=== PATIENT | female | born 1950 | race African-American/Black ===

== ENCOUNTER 2016-09-14 06:00 | Day surgery (SDC) | payer MEDICARE ==
[~2016-09-14] VITALS: Ht 160 cm; Wt 54.8 kg
[~2016-09-14 06:00] MED LIST: AMLO5TAB2 PO; ASPI1TAB69 PO; FISHCAP4 PO; Glucometer SQ; METF500T PO; PERI8.6T PO; ROSU40 PO; SERT-129 PO; ST J81CH PO; [UNRECOGNIZED DRUG - OTHER] SQ; lancets SQ; test strips SQ
[2016-09-14] MEDS ORDERED: SODIUM BICARBONATE 100 MEQ in D5W 1000 ML IV SCH (06:30)
[2016-09-14 07:09] VITALS: BP 156/76; PULSE 76; RESP 18; TEMP 98; O2SAT 99
[2016-09-14] MEDS ORDERED: GABA400C5 PO (07:16)
[2016-09-14] MEDS ORDERED: METF500T PO (07:16)
[2016-09-14] MEDS ORDERED: SERT-129 PO (07:16)
[2016-09-14 08:08] LABS: AUTOMATED NEUTROPHIL # 3.5 TH/MM3 (1.8-7.7); BASOPHIL # 0.1 TH/MM3 (0-0.2); BASOPHIL % 1.2 % (0.0-2.0); EOSINOPHIL # 0.3 TH/MM3 (0-0.4); EOSINOPHIL % 4.8 % (0.0-4.0); HEMATOCRIT 34.3 % (35.0-46.0); HEMO FLAGS DIFF FINAL; LYMPH % 27.3 % (9.0-44.0); LYMPHOCYTE # 1.6 TH/MM3 (1.0-4.8); MEAN CELL VOLUME 88.2 FL (80.0-100.0); MEAN CORPUSCULAR HEMOGLOBIN 29.3 PG (27.0-34.0); MEAN CORPUSCULAR HGB CONC 33.2 % (32.0-36.0); NEUT % 58.7 % (16.0-70.0); PLATELET COUNT 302 TH/MM3 (150-450); RED BLOOD COUNT 3.88 MIL/MM3 (4.00-5.30); RED CELL DISTRIBUTION WIDTH 15.6 % (11.6-17.2)
[2016-09-14 08:14] LABS: PROTHROMBIN TIME - PATIENT 11.1 SEC (9.8-11.6)
[2016-09-14] MEDS ORDERED: MIDAZOLAM HCL 5 MG/5 ML VIAL ONE (08:18)
[2016-09-14] MEDS ORDERED: HEPARIN-NS/PF INJ 500 ML ONE (08:18)
[2016-09-14] MEDS ORDERED: HEPARIN SODIUM - IV 10,000 UNITS/10 ML VIAL ONE (08:19)
[2016-09-14] MEDS ORDERED: NITROGLYCERIN INJ 5 ML ONE (08:19)
[2016-09-14] MEDS ORDERED: diphenhydrAMINE HCL 50 MG/ML VIAL ONE (08:47)
[2016-09-14] MEDS ORDERED: methylPREDNISolone SOD SUCC 125 MG/2 ML VIAL ONE (08:49)
[2016-09-14] MEDS ORDERED: FAMOTIDINE 20 MG/2 ML VIAL ONE (08:49)
[2016-09-14] MEDS ORDERED: NALOXONE HCL 0.4 MG/ML AMP ONE (08:57)
[2016-09-14] MEDS ORDERED: PROMETHAZINE HCL SYRUP 6.25 MG/5 ML CUP PO ONE (09:45)
--- NOTE | 2016-09-14 10:56 | MA ---
cc: ROBBIN ALVAREZ DATE 09/14/2016 PREOPERATIVE DIAGNOSIS Intermittent rest pain and short distance claudication, lifestyle-limiting SURGEON Robbin Alvarez DO PROCEDURE Access right common femoral artery used duplex ultrasound IV FLUIDS Approximately 500 cc ESTIMATED BLOOD LOSS Not calculated. PROCEDURE This patient is a pleasant 65-year-old female with a history of smoking and lifestyle limiting claudication. She was started on Pletal and was to undergo an angiogram for what I suspect to be multilevel disease. She did have a history of a codeine allergy with a rash. We did give her fentanyl which is in a different class before getting access to the right common femoral artery with duplex ultrasound. It should be noted that during our access, we were able to place a wire through our 21-gauge needle in the right common femoral artery and before I was able to exchange for the micropuncture catheter, she complained of severe itching. At that point, I removed the wire and applied pressure to the right groin. We gave her Benadryl, Solu-Cortef and then Narcan and we continued with hydration with approximately 500 cc of normal saline. It should be noted that her itching in her extremities did get better. She had some tachycardia into the one teens which resolved to a heart rate of around in the 80s while on the table. I spoke to the patient and her daughter and noted to them that if we were to perform any type of balloon angioplasty or stenting, she may need possible pain medication and with reactions to two different classes of the pain medications, I felt it would be better to do her angiogram under general anesthesia. She also was not able to lie still with her reaction which would make doing an arteriogram difficult. I spoke to the daughter about the reaction in the postoperative area and spoke to the patient. There was no hematoma in the groin and we transferred the patient to the recovery area. DO EDUARD Yates/JOANNA /9:33 AM /10:49 AM
[2016-10-05] MEDS ORDERED: GABA400C5 PO (11:19)
[2016-10-05] MEDS ORDERED: SERT-129 PO (11:19)
== END 2016-09-14 12:31 | disposition home or self-care (01) ==
LOC: HDOC 06:00 → HDIC 06:01 → HDOC 12:31
PROVIDERS: ATTEND Surgery
DX: I73.9 Peripheral vascular disease, unspecified (principal); Z87.891 Personal history of nicotine dependence; Z88.5 Allergy status to narcotic agent; R21 Rash and other nonspecific skin eruption; Z53.09 Procedure and treatment not carried out because of other contraindication
CPT/HCPCS: 85025; 85610; G0463; J1200; J1644; J2250; J2310; J2930; J3010; J7070; 99211